=== PATIENT | female | born 1960 | race Caucasian/White ===

== ENCOUNTER 2024-03-20 04:04 | Day surgery (SDC) | payer BC, OTHER ==
[2024-03-20] MEDS ORDERED: ONDANSETRON 4 MG/2 ML VIAL IVPUSH PRN (10:53)
[2024-03-20] MEDS ORDERED: oxyCODONE HCL 5 MG TABLET PO PRN (10:53)
[2024-03-20 11:01] VITALS: BMI 29.2
[2024-03-20] MEDS ORDERED: LIDOCAINE HCL/PF 2% SDV 5ML VIAL ONE (11:10)
[2024-03-20] MEDS ORDERED: DEXAMETHASONE SOD PHOSPHATE 4 MG/1 ML VIAL ONE (11:10)
[2024-03-20] MEDS ORDERED: METOCLOPRAMIDE HCL INJECTION 10 MG/2 ML VIAL ONE (11:10)
[2024-03-20] MEDS ORDERED: KETOROLAC TROMETHAMINE 30 MG/1 ML VIAL ONE (11:10)
[2024-03-20] MEDS ORDERED: ONDANSETRON 4 MG/2 ML VIAL ONE (11:10)
[2024-03-20] MEDS ORDERED: MIDAZOLAM HCL 2 MG/2 ML SINGLE DOSE VIAL ONE (11:13)
[2024-03-20] MEDS ORDERED: PROPOFOL 20 ML ONE ×2 (11:13→12:45)
[2024-03-20] MEDS ORDERED: ACETAMINOPHEN INJECTION 100 ML ONE (12:15)
[2024-03-20] MEDS: LACTATED RINGERS SOLUTION 1,000 ML IV SCH (14:41)
[2024-03-20 14:47] VITALS: RESP 18
[2024-03-20 16:15] VITALS: BP 119/59; PULSE 79; TEMP 97.5
== END 2024-03-20 15:10 | disposition home or self-care (01) ==
LOC: JASU-SURG 04:04
PROVIDERS: ATTEND Obstetrics & Gynecology
PROC: 0UDB8ZZ Extraction of Endometrium, Via Natural or Artificial Opening Endoscopic (ICD-10-PCS; principal; 2024-03-20 11:30)
DX: N95.0 Postmenopausal bleeding (principal); Z79.890 Hormone replacement therapy
CPT/HCPCS: 86850; 86900; 86901; 88305-TC; 94760; J0131